=== PATIENT | female | born 1930 | race Caucasian/White ===

== ENCOUNTER 2017-04-17 12:05 | Inpatient (IN) | payer MEDICARE, MEDICAID ==
[~2017-04-17] VITALS: Ht 165.1 cm; Wt 67.0 kg
[2017-04-17] MEDS ORDERED: LISI40TA PO (12:19)
[2017-04-17] MEDS ORDERED: ASPI-496 PO (12:19)
[2017-04-17] MEDS ORDERED: ONDANSETRON 2MG/ML, 2ML ONE (12:56)
[2017-04-17] MEDS ORDERED: MAALOX/HYOSCYAMINE/LIDOCAINE 45 ML BTL ONE (12:56)
[2017-04-17] MEDS ORDERED: MORPHINE SULFATE 4 MG/ML, 1ML ONE (12:56)
[2017-04-17] MEDS ORDERED: SODIUM CHLORIDE FLUSH 10ML SYR IVF ONE (13:00)
[2017-04-17] MEDS ORDERED: MAALOX/HYOSCYAMINE/LIDOCAINE 45 ML BTL PO ONE (13:00)
[2017-04-17] MEDS ORDERED: ONDANSETRON 2MG/ML, 2ML IVPush ONE (13:00)
[2017-04-17] MEDS ORDERED: SODIUM CHLORIDE 0.9% 1,000ML IVBOLUS ONE (13:00)
[2017-04-17] MEDS ORDERED: MORPHINE SULFATE 4 MG/ML, 1ML IVPush PRN (13:00)
[2017-04-17 13:10] LABS: MICROSCOPIC AUTO
[2017-04-17 13:12] LABS: CULTURE INDICATED? YES
[2017-04-17 13:19] LABS: BASOPHILS # (AUTO) 0.03 x10^3/uL (0-0.1); BASOPHILS % (AUTO) 0 % (0-1); EOSINOPHILS # (AUTO) 0.05 x10^3/uL (0-0.4); EOSINOPHILS % (AUTO) 1 % (1-7); LYMPHOCYTES # (AUTO) 1.25 x10^3/uL (1-3.4); LYMPHOCYTES % (AUTO) 12 % (22-44); MD NO; MEAN CORPUSCULAR VOLUME 85.2 fL (80-100); MEAN PLATELET VOLUME 8.1 fL (7.4-10.4); MONOCYTES # (AUTO) 0.64 x10^3/uL (0.2-0.8); MONOCYTES % (AUTO) 6 % (2-9); NEUTROPHILS # (AUTO) 8.92 x10^3/uL (1.8-6.8); NEUTROPHILS % (AUTO) 82 % (42-75); PLATELET COUNT 309 x10^3/uL (130-400); RED BLOOD COUNT 4.34 x10^6/uL (3.82-5.3); RED CELL DISTRIBUTION WIDTH 13.8 % (9.6-15.2)
[2017-04-17 13:31] LABS: ALANINE AMINOTRANSFERASE 15 U/L (12-78); ALBUMIN 3.3 g/dL (3.4-5.0); ANION GAP 10 mmol/L (5-15); CALCIUM 9.1 mg/dL (8.5-10.1); CHLORIDE 104 mmol/L (98-107); CREATININE 1.24 mg/dL (0.55-1.02)
[2017-04-17 13:33] LABS: ALKALINE PHOSPHATASE 75 U/L (45-117); BILIRUBIN,TOTAL 0.4 mg/dL (0.2-1.0)
[2017-04-17] MEDS ORDERED: OMNIPAQUE 350 MG/ML, 100ML BOTTLE ONE (14:34)
[2017-04-17] MEDS ORDERED: HYDROcodone/APAP 5/325 TABLET PO PRN (17:00)
[2017-04-17] MEDS ORDERED: hydrALAzine 20 MG/ML, 1ML IV PRN (17:00)
[2017-04-17] MEDS ORDERED: DOCUSATE 100 MG CAPSULE PO PRN (17:00)
[2017-04-17] MEDS ORDERED: ACETAMINOPHEN 325 MG TABLET PO PRN (17:00)
[2017-04-17] MEDS ORDERED: ONDANSETRON 2MG/ML, 2ML IVPush PRN (17:00)
[2017-04-17] MEDS ORDERED: morphine SULFATE 10 MG/ML, 1ML IVPush PRN (17:00)
[2017-04-17] MEDS ORDERED: CALCIUM CARBONATE 500 MG TAB.CHEW PO PRN (17:00)
[2017-04-17] MEDS ORDERED: MAALOX/HYOSCYAMINE/LIDOCAINE 45 ML BTL PO PRN (17:00)
[2017-04-17] MEDS ORDERED: SODIUM CHLORIDE 0.9% 1,000 ML IV SCH (17:00)
[2017-04-17] MEDS ORDERED: POLYETHYLENE GLYCOL 17 GM PACKET PO PRN (17:00)
[2017-04-17] MEDS ORDERED: LABETALOL 5MG/ML, 20ML IVPush PRN (17:00)
[2017-04-17] MEDS ORDERED: ENALAPRILAT 1.25 MG/ML, 2ML IV PRN (17:00)
[2017-04-17 19:28] VITALS: BP 155/64
[2017-04-17] MEDS: FAMOTIDINE 20 MG TABLET PO SCH (21:04)
[2017-04-17] MEDS: SODIUM CHLORIDE FLUSH 10ML SYR IVF SCH (21:04)
[2017-04-18 01:18] VITALS: BP 149/68
[2017-04-18 07:39] VITALS: BP 115/74
[2017-04-18] MEDS: SENNA/DOCUSATE TABLET PO SCH (09:05)
[2017-04-18] MEDS: FAMOTIDINE 20 MG TABLET PO SCH (09:05)
[2017-04-18] MEDS: LISINOPRIL 20 MG TABLET PO SCH (09:05)
[2017-04-18] MEDS: SODIUM CHLORIDE FLUSH 10ML SYR IVF SCH ×2 (09:05→21:00)
[2017-04-18] MEDS: PANTOPRAZOLE 20MG TABLET PO SCH (12:29)
[2017-04-18] MEDS: SUCRALFATE 1 GM/10 ML UDC PO SCH ×3 (12:29→21:52)
[2017-04-18 13:24] VITALS: BP 94/53
[2017-04-18] MEDS ORDERED: SENNA/DOCUSATE TABLET PO PRN (18:00)
[2017-04-18] MEDS ORDERED: GLYCERIN ADULT SUPP PR PRN (18:00)
[2017-04-18] MEDS ORDERED: MAGNESIUM CITRATE 300ML ORAL SOL PO PRN (18:00)
[2017-04-18 19:10] VITALS: BP 95/58
[2017-04-18] MEDS: HEPARIN 5,000 UNITS/ML, 1ML SQ SCH (21:52)
[2017-04-18] MEDS: ASPIRIN 81 MG TABLET EC PO SCH (21:52)
[2017-04-19 01:06] VITALS: BP 102/64
[2017-04-19 04:43] LABS: BASOPHILS # (AUTO) 0.07 x10^3/uL (0-0.1); BASOPHILS % (AUTO) 1 % (0-1); EOSINOPHILS # (AUTO) 0.24 x10^3/uL (0-0.4); EOSINOPHILS % (AUTO) 4 % (1-7); LYMPHOCYTES # (AUTO) 1.68 x10^3/uL (1-3.4); LYMPHOCYTES % (AUTO) 26 % (22-44); MD NO; MEAN CORPUSCULAR HEMOGLOBIN 28.4 pg (27.0-34.8); MEAN CORPUSCULAR HGB CONC 33.3 g/dL (32.4-35.8); MEAN CORPUSCULAR VOLUME 85.4 fL (80-100); MEAN PLATELET VOLUME 8.1 fL (7.4-10.4); MONOCYTES # (AUTO) 0.68 x10^3/uL (0.2-0.8); MONOCYTES % (AUTO) 11 % (2-9); NEUTROPHILS # (AUTO) 3.84 x10^3/uL (1.8-6.8); NEUTROPHILS % (AUTO) 59 % (42-75); PLATELET COUNT 257 x10^3/uL (130-400); RED CELL DISTRIBUTION WIDTH 13.9 % (9.6-15.2)
[2017-04-19 04:46] LABS: ALBUMIN 2.8 g/dL (3.4-5.0); ANION GAP 8 mmol/L (5-15); CALCIUM 8.7 mg/dL (8.5-10.1); CHLORIDE 109 mmol/L (98-107); CREATININE 1.38 mg/dL (0.55-1.02)
[2017-04-19 07:11] VITALS: BP 176/90
[2017-04-19] MEDS: SODIUM CHLORIDE FLUSH 10ML SYR IVF SCH (07:35)
[2017-04-19] MEDS: SENNA/DOCUSATE TABLET PO SCH (08:07)
[2017-04-19] MEDS: SUCRALFATE 1 GM/10 ML UDC PO SCH (08:07)
[2017-04-19] MEDS: LISINOPRIL 20 MG TABLET PO SCH (08:08)
[2017-04-19] MEDS: ASPIRIN 81 MG TABLET EC PO SCH (08:08)
[2017-04-19] MEDS: PANTOPRAZOLE 20MG TABLET PO SCH (08:08)
[2017-04-19] MEDS: HEPARIN 5,000 UNITS/ML, 1ML SQ SCH (08:08)
[2017-04-19] MEDS ORDERED: SUCRALFATE 1 GM TABLET PO SCH (12:00)
[2017-04-19] MEDS ORDERED: SUCR1TAB33 PO (13:11)
[2017-04-19] MEDS ORDERED: PANT20TA3 PO (13:11)
== END 2017-04-19 13:58 | disposition home or self-care (01) | DRG 394 ==
LOC: ED 13:48 → EDIP 16:04 → 3NE 17:39
PROVIDERS: ADMIT Internal Medicine; ATTEND Family Medicine
DX: K55.1 Chronic vascular disorders of intestine (principal); E44.0 Moderate protein-calorie malnutrition; I73.9 Peripheral vascular disease, unspecified; K57.30 Diverticulosis of large intestine without perforation or abscess without bleeding; K59.00 Constipation, unspecified; Z66 Do not resuscitate; K21.9 Gastro-esophageal reflux disease without esophagitis; K29.70 Gastritis, unspecified, without bleeding; H91.90 Unspecified hearing loss, unspecified ear; I10 Essential (primary) hypertension; I25.10 Atherosclerotic heart disease of native coronary artery without angina pectoris; I25.2 Old myocardial infarction; Z90.49 Acquired absence of other specified parts of digestive tract; Z95.1 Presence of aortocoronary bypass graft; K25.9 Gastric ulcer, unspecified as acute or chronic, without hemorrhage or perforation
CPT/HCPCS: 36415; 71045; 74177; 80048; 80053; 81001; 82040; 83605; 83690; 83735; 85025; 86677; 87040; 87086; 93005; 96361; 96374; 96375; J1644; J2405; Q9967; J7030

== ENCOUNTER 2018-04-10 20:48 | Emergency (ER) | payer MEDICARE, MEDICAID ==
[~2018-04-10] VITALS: Ht 162.6 cm; Wt 70.0 kg
[~2018-04-10 20:48] MED LIST: ASPI-496 PO; LISI40TA PO; PANT20TA2 PO; PANT20TA3 PO; RANI150T23 PO; SUCR1TAB33 PO
[2018-04-10 20:58] VITALS: BP 109/74
[2018-04-10] MEDS ORDERED: ALBUTEROL SULFATE 2.5 MG/3 ML ONE (21:21)
[2018-04-10] MEDS ORDERED: AZITHROMYCIN 500 MG TABLET ONE (21:24)
--- NOTE | 2018-04-10 21:28 | NUR ---
RT AT BEDSIDE FOR BREATHING TREATMENT. PT MEDICATED PER EMAR
[2018-04-10] MEDS ORDERED: AZITHROMYCIN 500 MG TABLET PO ONE (21:30)
[2018-04-10] MEDS ORDERED: ALBUTEROL SULFATE 2.5 MG/3 ML NPPB ONE (21:30)
--- NOTE | 2018-04-10 21:35 | NUR ---
Break RN: patient assisted to use bathroom. ambulatory with steady gait.
[2018-04-10] MEDS ORDERED: MAALOX/HYOSCYAMINE/LIDOCAINE 45 ML BTL ONE (22:12)
[2018-04-10] MEDS ORDERED: MAALOX/HYOSCYAMINE/LIDOCAINE 45 ML BTL PO ONE (22:30)
== END 2018-04-10 22:25 | disposition home or self-care (01) ==
LOC: ED 22:15
DX: J20.9 Acute bronchitis, unspecified (principal); R05 Cough; I25.2 Old myocardial infarction; I25.10 Atherosclerotic heart disease of native coronary artery without angina pectoris; I25.83 Coronary atherosclerosis due to lipid rich plaque; I11.9 Hypertensive heart disease without heart failure; Z95.1 Presence of aortocoronary bypass graft
CPT/HCPCS: 71045; 94640; 99284; J7613

== ENCOUNTER 2018-04-17 13:00 | Inpatient (IN) | payer MEDICARE, MEDICAID ==
[~2018-04-17] VITALS: Ht 157.5 cm; Wt 61.6 kg
[2018-04-17] MEDS ORDERED: PANTOPRAZOLE 80 MG in SODIUM CHLORIDE 0.9% 50 ML IVPB ONE (13:14)
[2018-04-17] MEDS ORDERED: PANTOPRAZOLE 80 MG in SODIUM CHLORIDE 0.9% 100 ML IV SCH (13:14)
--- NOTE | 2018-04-17 13:19 | NUR ---
Pt moved to Tr04 after vomiting gross blood. BIlateral IV in rpogress.
[2018-04-17] MEDS ORDERED: ONDANSETRON 2MG/ML, 2ML ONE (13:26)
[2018-04-17] MEDS ORDERED: FAMOTIDINE 20 MG/2 ML ONE (13:26)
[2018-04-17] MEDS ORDERED: SODIUM CHLORIDE 0.9% 1,000ML IVBOLUS ONE ×2 (13:30)
[2018-04-17] MEDS ORDERED: ONDANSETRON 2MG/ML, 2ML IVPush ONE (13:30)
[2018-04-17] MEDS ORDERED: MAALOX/HYOSCYAMINE/LIDOCAINE 45 ML BTL PO ONE (13:30)
[2018-04-17] MEDS ORDERED: SODIUM CHLORIDE FLUSH 10ML SYR IVF ONE (13:30)
[2018-04-17] MEDS: PLEASE ENTER HEIGHT AND WEIGHT MC SCH ×2 (13:30→21:23)
--- NOTE | 2018-04-17 13:32 | NUR ---
PATIENT MOVED TO T4. PATIENT EKG, MONITOR, BP DONE. MEDS ORDERED FROM PHARM. TWO IV NS BLOUSES GOING WITH PRESSURE BAGS
[2018-04-17 13:41] LABS: MEAN CORPUSCULAR HGB CONC 33.1 g/dL (32.4-35.8); MEAN CORPUSCULAR VOLUME 84.7 fL (80-100); PLATELET COUNT 448 x10^3/uL (130-400); RED BLOOD COUNT 1.97 x10^6/uL (3.82-5.3); RED CELL DISTRIBUTION WIDTH 15.4 % (9.6-15.2)
--- NOTE | 2018-04-17 13:41 | NUR ---
LABS DRAWN AND CXR DONE
[2018-04-17 13:46] LABS: ALANINE AMINOTRANSFERASE 16 U/L (12-78); ALBUMIN 2.4 g/dL (3.4-5.0); ANION GAP 12 mmol/L (5-15); CALCIUM 7.8 mg/dL (8.5-10.1); CHLORIDE 108 mmol/L (98-107)
--- NOTE | 2018-04-17 13:50 | NUR ---
MD GARCIA (GI) AT
[2018-04-17 13:51] LABS: ALKALINE PHOSPHATASE 64 U/L (45-117); BILIRUBIN,TOTAL 0.3 mg/dL (0.2-1.0); TOTAL PROTEIN 5.2 g/dL (6.4-8.2); TROPONIN I 0.031 ng/mL (0.000-0.045)
[2018-04-17 13:52] LABS: INTERNATIONAL NORMALIZED RATIO 1.03 (0.93-1.1); PROTHROMBIN TIME 10.9 Seconds (9.6-11.5)
--- NOTE | 2018-04-17 14:11 | NUR ---
PT TO HAVE EMERGENT BLOOD TRANSFUSION AT THIS TIME. PT TO HAVE A BLOOD TYPE AT THIS TIME. PT HAS BEEN MATCHED TWICE BY ANANDA IN BLOOD BANK AND AWAITING COMPLETE TYPE AND SCREEN. UNIT HUNG ON BLOOD TUBING WITH FILTER VIA GRAVITY. THIS RN SERVED SECOND VERIFICATION AT THIS TIME.
--- NOTE | 2018-04-17 14:14 | NUR ---
INITATED AND VERFIED BLOOD WITH DANAE FOR THIS PATIENT- IMMEDIATE BLOOD TRANSFUSION - TYPE A VERIFIED WITH ANANDA IN BLOOD BLANK
[2018-04-17 14:15] LABS: BASOPHILS # (AUTO) 0.07 x10^3/uL (0-0.1); BASOPHILS % (AUTO) 1 % (0-1); EOSINOPHILS # (AUTO) 0.01 x10^3/uL (0-0.4); EOSINOPHILS % (AUTO) 0 % (1-7); LYMPHOCYTES # (AUTO) 2.13 x10^3/uL (1-3.4); LYMPHOCYTES % (AUTO) 18 % (22-44); MONOCYTES % (AUTO) 6 % (2-9); NEUTROPHILS % (AUTO) 75 % (42-75)
[2018-04-17] MEDS ORDERED: PROPOFOL 10 MG/ML, 20ML ONE ×2 (14:16→14:42)
[2018-04-17 14:17] LABS: MD MORPH REVIEW ONLY
[2018-04-17 14:18] LABS: <PLATELET ESTIMATE> ADEQUATE; <PLT MORPHOLOGY> NORMAL PLT MORPH; ANISOCYTOSIS 1+; POLYCHROMASIA 1+
[2018-04-17] MEDS ORDERED: OMEP-110 PO (14:23)
[2018-04-17] MEDS ORDERED: PROPOFOL 10 MG/ML, 20ML IVPush ONE (14:30)
--- NOTE | 2018-04-17 14:38 | NUR ---
ENDO AT BS WITH MS SORIANO TO MANAGE SEDATION. SEE PAPER CHARTING FOR ENDOSCOPY NOTES. VSS.
[2018-04-17 15:15] VITALS: BP 119/38
[2018-04-17] MEDS ORDERED: EPINEPHRINE SYRINGE 0.1 MG/ML, 10ML ONE (15:24)
--- NOTE | 2018-04-17 15:25 | NUR ---
PATIENT DAUGHTER KIKE AT BS. GI HAS SPOKEN WITH THIS PATIENT ABOUT PLAN OF CARE. PATIENT RESTING WITH EYES CLOSED AFTER BEING CLEANED UP. AFTER PROCEDURE PATIENT VOMITED THREE ORANGE SIZE BLOOD CLOTS.
[2018-04-17 15:30] VITALS: BP 151/52
--- NOTE | 2018-04-17 15:33 | NUR ---
KIKE PHONE NUMBER [phone]. KIKE TOOK ALL BELONINGS HOME WITH HER EXCEPT PATIENT'S PHONE AND PHONE OPERATING SYSTEM PROGRAMMER. ONLY THE BOTTOM PAIR OF DENTURES FOUND HERE IN ER AND SENT HOME ITH DAUGHTER. REQUESTED THAT DAUGHTER BRING TOP DENTURES AND BOTTOM OTGETHER SO PATIENT CAN EAT. PATIENT ASLEEP AT THIS TIME. WHEN AWAKE, PATIENT CONTINUES TO COMPLAIN OF PAIN. MD VERAS AWARE AND HAS CHECKED ON PATIENT.
[2018-04-17] MEDS ORDERED: ONDANSETRON 2MG/ML, 2ML IVPush PRN (16:30)
--- NOTE | 2018-04-17 16:39 | NUR ---
MD IBARRA AT BEDSIDE
--- NOTE | 2018-04-17 17:08 | NUR ---
PATIENT SLEEPING. PLAN TO DETERMINED ICU VERSES FLOOR ADMIT STAUS AFTER MD IBARRA CONSULTS WITH GI MS GARCIA
[2018-04-17 17:46] VITALS: BP 174/58
--- NOTE | 2018-04-17 17:47 | NUR ---
2ND UNIT BLOOD TRANSFUSION FINISHED. LAB AT BS
[2018-04-17] MEDS: SODIUM CHLORIDE 0.9% 1,000 ML IV SCH (20:40)
[2018-04-17] MEDS: hydrALAzine 20 MG/ML, 1ML IV PRN (20:44)
[2018-04-17] MEDS: PANTOPRAZOLE 80 MG in SODIUM CHLORIDE 0.9% 100 ML IV SCH (21:21)
[2018-04-17] MEDS ORDERED: ENALAPRILAT 1.25 MG/ML, 2ML ONE (21:48)
[2018-04-17] MEDS ORDERED: ENALAPRILAT 1.25 MG/ML, 2ML IV PRN (22:00)
[2018-04-18] VITALS (8 sets, daily range): BP systolic 122–165; BP diastolic 45–82
[2018-04-18] MEDS: hydrALAzine 20 MG/ML, 1ML IV PRN (03:06)
[2018-04-18 06:20] LABS: MEAN CORPUSCULAR HEMOGLOBIN 29.3 pg (27.0-34.8); MEAN CORPUSCULAR HGB CONC 34.6 g/dL (32.4-35.8); MEAN CORPUSCULAR VOLUME 84.8 fL (80-100); MEAN PLATELET VOLUME 7.7 fL (7.4-10.4); PLATELET COUNT 245 x10^3/uL (130-400); RED BLOOD COUNT 2.38 x10^6/uL (3.82-5.3); RED CELL DISTRIBUTION WIDTH 14.4 % (9.6-15.2)
[2018-04-18 06:33] LABS: ALBUMIN 2.3 g/dL (3.4-5.0); ANION GAP 8 mmol/L (5-15); CALCIUM 7.8 mg/dL (8.5-10.1); CHLORIDE 113 mmol/L (98-107)
[2018-04-18 06:37] LABS: ALANINE AMINOTRANSFERASE 13 U/L (12-78); ALKALINE PHOSPHATASE 52 U/L (45-117); BILIRUBIN,TOTAL 0.7 mg/dL (0.2-1.0); CREATININE 1.04 mg/dL (0.55-1.02); TOTAL PROTEIN 4.7 g/dL (6.4-8.2)
[2018-04-18 06:40] LABS: BASOPHILS # (AUTO) 0.05 x10^3/uL (0-0.1); BASOPHILS % (AUTO) 1 % (0-1); EOSINOPHILS # (AUTO) 0.11 x10^3/uL (0-0.4); EOSINOPHILS % (AUTO) 1 % (1-7); LYMPHOCYTES % (AUTO) 18 % (22-44); MD SCAN; MONOCYTES # (AUTO) 0.86 x10^3/uL (0.2-0.8); MONOCYTES % (AUTO) 8 % (2-9); NEUTROPHILS # (AUTO) 7.41 x10^3/uL (1.8-6.8); NEUTROPHILS % (AUTO) 73 % (42-75)
[2018-04-18] MEDS: PANTOPRAZOLE 80 MG in SODIUM CHLORIDE 0.9% 100 ML IV SCH ×2 (08:49→16:28)
[2018-04-18] MEDS: SODIUM CHLORIDE 0.9% 1,000 ML IV SCH ×2 (08:50→21:21)
[2018-04-18] MEDS: LISINOPRIL 10 MG TABLET PO SCH (09:57)
[2018-04-18] MEDS: GUAIFENESIN/DM 100-10MG, 5ML UDC PO PRN ×2 (10:14→21:21)
[2018-04-18] MEDS: SUCRALFATE 1 GM/10 ML UDC PO SCH ×3 (10:14→21:21)
[2018-04-19 02:00] VITALS: BP 145/83
[2018-04-19] MEDS: PANTOPRAZOLE 80 MG in SODIUM CHLORIDE 0.9% 100 ML IV SCH ×2 (04:06→13:59)
[2018-04-19 04:53] LABS: MEAN CORPUSCULAR HGB CONC 33.9 g/dL (32.4-35.8); MEAN CORPUSCULAR VOLUME 85.4 fL (80-100); MEAN PLATELET VOLUME 7.6 fL (7.4-10.4); PLATELET COUNT 238 x10^3/uL (130-400); RED BLOOD COUNT 2.47 x10^6/uL (3.82-5.3); RED CELL DISTRIBUTION WIDTH 14.8 % (9.6-15.2)
[2018-04-19 04:56] LABS: ANION GAP 7 mmol/L (5-15); CALCIUM 7.8 mg/dL (8.5-10.1); CHLORIDE 115 mmol/L (98-107)
[2018-04-19 04:58] LABS: CREATININE 0.93 mg/dL (0.55-1.02)
[2018-04-19 05:43] LABS: BASOPHILS % (AUTO) 1 % (0-1); EOSINOPHILS % (AUTO) 5 % (1-7); LYMPHOCYTES % (AUTO) 21 % (22-44); MONOCYTES % (AUTO) 12 % (2-9); NEUTROPHILS # (AUTO) 4.03 x10^3/uL (1.8-6.8); NEUTROPHILS % (AUTO) 61 % (42-75)
[2018-04-19 05:49] LABS: MD SCAN
[2018-04-19] MEDS ORDERED: MAGNESIUM SULFATE PMX 4GM/100M 100 ML IV ONE (06:00)
[2018-04-19 06:39] LABS: BASOPHILS # (AUTO) 0.06 x10^3/uL (0-0.1); EOSINOPHILS # (AUTO) 0.33 x10^3/uL (0-0.4); LYMPHOCYTES # (AUTO) 1.41 x10^3/uL (1-3.4); MONOCYTES # (AUTO) 0.76 x10^3/uL (0.2-0.8)
[2018-04-19] MEDS: SUCRALFATE 1 GM/10 ML UDC PO SCH ×4 (07:47→20:02)
[2018-04-19 08:10] VITALS: BP 157/80
[2018-04-19] MEDS: LISINOPRIL 10 MG TABLET PO SCH (09:39)
[2018-04-19] MEDS ORDERED: GUAIFENESIN/COD200MG-20MG/10ML LIQUID PO PRN (11:00)
[2018-04-19 13:32] VITALS: BP 189/65
[2018-04-19 13:34] VITALS: BP 143/83
[2018-04-19] MEDS: GUAIFENESIN/DM 100-10MG, 5ML UDC PO PRN ×2 (13:53→20:02)
[2018-04-19] MEDS ORDERED: OMNIPAQUE 350 MG/ML, 100ML BOTTLE ONE (17:32)
[2018-04-19 20:00] VITALS: BP 143/62
[2018-04-19] MEDS: OMEPRAZOLE 20 MG CAPSULE.DR PO SCH (20:03)
[2018-04-20] VITALS (11 sets, daily range): BP systolic 119–164; BP diastolic 55–82
[2018-04-20 05:09] LABS: BASOPHILS # (AUTO) 0.04 x10^3/uL (0-0.1); BASOPHILS % (AUTO) 1 % (0-1); EOSINOPHILS # (AUTO) 0.36 x10^3/uL (0-0.4); EOSINOPHILS % (AUTO) 6 % (1-7); LYMPHOCYTES # (AUTO) 1.21 x10^3/uL (1-3.4); LYMPHOCYTES % (AUTO) 19 % (22-44); MD NO; MEAN CORPUSCULAR HGB CONC 33.8 g/dL (32.4-35.8); MEAN CORPUSCULAR VOLUME 85.6 fL (80-100); MEAN PLATELET VOLUME 7.6 fL (7.4-10.4); MONOCYTES # (AUTO) 0.67 x10^3/uL (0.2-0.8); MONOCYTES % (AUTO) 11 % (2-9); NEUTROPHILS % (AUTO) 64 % (42-75); PLATELET COUNT 250 x10^3/uL (130-400); RED BLOOD COUNT 2.47 x10^6/uL (3.82-5.3); RED CELL DISTRIBUTION WIDTH 14.6 % (9.6-15.2)
[2018-04-20 05:15] LABS: ANION GAP 9 mmol/L (5-15); CALCIUM 8.1 mg/dL (8.5-10.1); CHLORIDE 111 mmol/L (98-107)
[2018-04-20 05:17] LABS: CREATININE 1.08 mg/dL (0.55-1.02)
[2018-04-20] MEDS: SUCRALFATE 1 GM/10 ML UDC PO SCH ×4 (07:42→20:10)
[2018-04-20] MEDS: OMEPRAZOLE 20 MG CAPSULE.DR PO SCH ×2 (07:42→20:11)
[2018-04-20] MEDS: LISINOPRIL 10 MG TABLET PO SCH (09:00)
[2018-04-20] MEDS ORDERED: FUROSEMIDE 40 MG/4 ML IV ONE (14:00)
[2018-04-20] MEDS ORDERED: OMNIPAQUE 350 MG/ML, 100ML BOTTLE ONE (17:31)
[2018-04-21 00:03] VITALS: BP 138/76
[2018-04-21 04:52] LABS: ANION GAP 7 mmol/L (5-15); BASOPHILS # (AUTO) 0.04 x10^3/uL (0-0.1); BASOPHILS % (AUTO) 1 % (0-1); CALCIUM 8.6 mg/dL (8.5-10.1); CHLORIDE 108 mmol/L (98-107); CREATININE 1.07 mg/dL (0.55-1.02); EOSINOPHILS # (AUTO) 0.35 x10^3/uL (0-0.4); EOSINOPHILS % (AUTO) 5 % (1-7); LYMPHOCYTES # (AUTO) 1.54 x10^3/uL (1-3.4); LYMPHOCYTES % (AUTO) 23 % (22-44); MD NO; MEAN CORPUSCULAR VOLUME 88.2 fL (80-100); MEAN PLATELET VOLUME 7.5 fL (7.4-10.4); MONOCYTES # (AUTO) 0.78 x10^3/uL (0.2-0.8); MONOCYTES % (AUTO) 12 % (2-9); NEUTROPHILS # (AUTO) 4.11 x10^3/uL (1.8-6.8); NEUTROPHILS % (AUTO) 60 % (42-75); PLATELET COUNT 280 x10^3/uL (130-400); RED BLOOD COUNT 3.46 x10^6/uL (3.82-5.3); RED CELL DISTRIBUTION WIDTH 14.3 % (9.6-15.2)
[2018-04-21] MEDS: OMEPRAZOLE 20 MG CAPSULE.DR PO SCH (05:42)
[2018-04-21 07:00] VITALS: BP 132/73
[2018-04-21] MEDS: LISINOPRIL 10 MG TABLET PO SCH (09:13)
[2018-04-21] MEDS: SUCRALFATE 1 GM/10 ML UDC PO SCH ×2 (09:13→11:26)
[2018-04-21] MEDS ORDERED: OMEP-110 PO (11:47)
[2018-04-21] MEDS ORDERED: GUAI5SYR PO (11:47)
[2018-04-21] MEDS ORDERED: SUCR1ORA5 PO (11:47)
== END 2018-04-21 13:53 | disposition home health service (06) | DRG 377 ==
LOC: ED 13:39 → EDIP 15:48 → CCU 18:54 → ICU 23:28 → 3NW 04-18 17:24
PROVIDERS: ADMIT Hospitalist; ATTEND Hospitalist
PROC: 3E0G8GC Introduction of Other Therapeutic Substance into Upper GI, Via Natural or Artificial Opening Endoscopic (ICD-10-PCS; 2018-04-17)
PROC: 0D568ZZ Destruction of Stomach, Via Natural or Artificial Opening Endoscopic (ICD-10-PCS; 2018-04-17)
PROC: 0DB68ZX Excision of Stomach, Via Natural or Artificial Opening Endoscopic, Diagnostic (ICD-10-PCS; 2018-04-17)
PROC: 30233N1 Transfusion of Nonautologous Red Blood Cells into Peripheral Vein, Percutaneous Approach (ICD-10-PCS; principal; 2018-04-17 14:10)
DX: K25.4 Chronic or unspecified gastric ulcer with hemorrhage (principal); R57.8 Other shock; N17.9 Acute kidney failure, unspecified; D62 Acute posthemorrhagic anemia; R91.8 Other nonspecific abnormal finding of lung field; I70.8 Atherosclerosis of other arteries; I10 Essential (primary) hypertension; I25.10 Atherosclerotic heart disease of native coronary artery without angina pectoris; I73.9 Peripheral vascular disease, unspecified; K21.9 Gastro-esophageal reflux disease without esophagitis; K59.00 Constipation, unspecified; Z77.22 Contact with and (suspected) exposure to environmental tobacco smoke (acute) (chronic); R00.0 Tachycardia, unspecified; I25.2 Old myocardial infarction; Z87.891 Personal history of nicotine dependence; Z95.1 Presence of aortocoronary bypass graft; Z90.49 Acquired absence of other specified parts of digestive tract
CPT/HCPCS: 36415; 36430; 70450; 71045; 71275; 74177; 80048; 80053; 83605; 83690; 83735; 84100; 84484; 85014; 85018; 85025; 85610; 85730; 86850; 86900; 86923; 87081; 88305; 88342; 93005; 96374; 96375; 99291; G0378; J1940; J2405; J2704; Q9967; C9113; J0360; J3475; J7030; P9016

== ENCOUNTER 2019-03-26 12:59 | Inpatient (IN) | payer MEDICARE, MEDICAID ==
[~2019-03-26] VITALS: Ht 167.6 cm; Wt 63.2 kg
[~2019-03-26 12:59] MED LIST changes: +GUAI5SYR PO; +OMEP-110 PO; +RANI-467 PO; -RANI150T23 PO; +SUCR1ORA5 PO
--- NOTE | 2019-03-26 13:03 | NUR ---
PATIENT BROUGHT IN BY [facility] WITH CHIEF COMPLAINT OF ABD/RIB PAIN WITH "DARK" FOR 5 DAYS. THE PATIENT DENIES CP, SOB, N/V, OR RECENT TRAUMA. THE PATIENT IS ALERT, ORIENTED, WARM AND DRY. PER PATIENT- ONE YEAR AGO HAD REPAR OF BLEEDING ULCER BY DR. RANGEL.
--- NOTE | 2019-03-26 13:15 | NUR ---
PATIENT DENIES BLOOD IN STOOL
[2019-03-26] MEDS ORDERED: PANTOPRAZOLE 80 MG in SODIUM CHLORIDE 0.9% 100 ML IV SCH (13:21)
[2019-03-26] MEDS ORDERED: PANTOPRAZOLE 80 MG in SODIUM CHLORIDE 0.9% 50 ML IVPB ONE (13:21)
[2019-03-26] MEDS ORDERED: SODIUM CHLORIDE FLUSH 10ML SYR IVF ONE (13:30)
[2019-03-26 13:53] LABS: BASOPHILS # (AUTO) 0.03 x10^3/uL (0-0.1); BASOPHILS % (AUTO) 0 % (0-1); EOSINOPHILS # (AUTO) 0.01 x10^3/uL (0-0.4); EOSINOPHILS % (AUTO) 0 % (1-7); LYMPHOCYTES # (AUTO) 0.64 x10^3/uL (1-3.4); LYMPHOCYTES % (AUTO) 8 % (22-44); MD NO; MEAN CORPUSCULAR HEMOGLOBIN 28.7 pg (27.0-34.8); MEAN CORPUSCULAR HGB CONC 32.8 g/dL (32.4-35.8); MEAN CORPUSCULAR VOLUME 87.7 fL (80-100); MEAN PLATELET VOLUME 8.5 fL (7.4-10.4); MONOCYTES # (AUTO) 0.43 x10^3/uL (0.2-0.8); MONOCYTES % (AUTO) 5 % (2-9); NEUTROPHILS # (AUTO) 7.38 x10^3/uL (1.8-6.8); NEUTROPHILS % (AUTO) 87 % (42-75); PLATELET COUNT 239 x10^3/uL (130-400); RED BLOOD COUNT 4.09 x10^6/uL (3.82-5.3); RED CELL DISTRIBUTION WIDTH 13.2 % (9.6-15.2)
[2019-03-26 14:01] LABS: INTERNATIONAL NORMALIZED RATIO 0.98 (0.93-1.1); PROTHROMBIN TIME 10.3 Seconds (9.6-11.5)
[2019-03-26 14:02] LABS: ALANINE AMINOTRANSFERASE 23 U/L (12-78); ALBUMIN 3.2 g/dL (3.4-5.0); ANION GAP 8 mmol/L (5-15); CALCIUM 8.8 mg/dL (8.5-10.1); CHLORIDE 103 mmol/L (98-107)
[2019-03-26 14:05] LABS: ALKALINE PHOSPHATASE 79 U/L (45-117); BILIRUBIN,TOTAL 0.4 mg/dL (0.2-1.0); TOTAL PROTEIN 6.8 g/dL (6.4-8.2)
--- NOTE | 2019-03-26 14:30 | NUR ---
ASSISTED PATIENT WITH STEADY AMBULATION TO BATHROOM. BACK RESTING IN BED.
[2019-03-26] MEDS ORDERED: ASPI-496 PO (15:19)
[2019-03-26 19:06] VITALS: BP 116/78
[2019-03-26] MEDS ORDERED: SODIUM CHLORIDE 0.9% 1,000 ML IV SCH (19:17)
[2019-03-26] MEDS ORDERED: TEMAZEPAM 15 MG CAPSULE PO PRN (19:30)
[2019-03-26] MEDS ORDERED: ONDANSETRON 2MG/ML, 2ML IVPush PRN (19:30)
[2019-03-26] MEDS ORDERED: ACETAMINOPHEN 325 MG TABLET PO PRN (19:30)
[2019-03-26] MEDS ORDERED: LIDODERM 5% PATCH TD PRN (19:30)
[2019-03-26] MEDS ORDERED: DOCUSATE 100 MG CAPSULE PO PRN (19:30)
[2019-03-27] MEDS: PANTOPRAZOLE 80 MG in SODIUM CHLORIDE 0.9% 100 ML IV SCH ×3 (00:58→21:50)
[2019-03-27 01:32] VITALS: BP 129/80
[2019-03-27 06:11] LABS: BASOPHILS # (AUTO) 0.04 x10^3/uL (0-0.1); BASOPHILS % (AUTO) 1 % (0-1); EOSINOPHILS # (AUTO) 0.07 x10^3/uL (0-0.4); EOSINOPHILS % (AUTO) 1 % (1-7); LYMPHOCYTES # (AUTO) 1.28 x10^3/uL (1-3.4); LYMPHOCYTES % (AUTO) 25 % (22-44); MD NO; MEAN CORPUSCULAR HGB CONC 33.3 g/dL (32.4-35.8); MEAN CORPUSCULAR VOLUME 87.3 fL (80-100); MEAN PLATELET VOLUME 8.8 fL (7.4-10.4); MONOCYTES # (AUTO) 0.55 x10^3/uL (0.2-0.8); MONOCYTES % (AUTO) 11 % (2-9); NEUTROPHILS # (AUTO) 3.16 x10^3/uL (1.8-6.8); NEUTROPHILS % (AUTO) 62 % (42-75); PLATELET COUNT 203 x10^3/uL (130-400); RED BLOOD COUNT 3.78 x10^6/uL (3.82-5.3); RED CELL DISTRIBUTION WIDTH 13.5 % (9.6-15.2)
[2019-03-27 06:14] LABS: CHLORIDE 110 mmol/L (98-107)
[2019-03-27 06:17] LABS: ANION GAP 9 mmol/L (5-15); CALCIUM 8.9 mg/dL (8.5-10.1); CREATININE 1.18 mg/dL (0.55-1.02)
[2019-03-27 07:19] VITALS: BP 104/64
[2019-03-27] MEDS: LISINOPRIL 10 MG TABLET PO SCH ×2 (09:00→10:19)
[2019-03-27] MEDS ORDERED: FENTANYL PF 100 MCG/2ML ONE (11:39)
[2019-03-27] MEDS ORDERED: MIDAZOLAM 1 MG/ML, 2ML ONE (11:39)
[2019-03-27] MEDS ORDERED: PROPOFOL 10 MG/ML, 20ML ONE (12:12)
[2019-03-27] MEDS ORDERED: HYDROmorphone 2 MG/ML, 1ML IVPush PRN (13:00)
[2019-03-27] MEDS ORDERED: MEPERIDINE/PF 25MG/ML,1ML IVPush PRN (13:00)
[2019-03-27] MEDS ORDERED: OXYcodone 5 MG/5 ML ORAL.SOL UDC PO PRN (13:00)
[2019-03-27] MEDS ORDERED: hydrALAzine 20 MG/ML, 1ML IV PRN (13:00)
[2019-03-27] MEDS ORDERED: METOPROLOL 1 MG/ML, 5ML IV PRN (13:00)
[2019-03-27] MEDS ORDERED: ONDANSETRON 2MG/ML, 2ML IV PRN (13:00)
[2019-03-27] MEDS ORDERED: FENTANYL PF 100 MCG/2ML IV PRN (13:00)
[2019-03-27] MEDS ORDERED: ACETAMINOPHEN 325 MG TABLET PO PRN (13:00)
[2019-03-27] MEDS ORDERED: hydrALAzine 20 MG/ML, 1ML ONE (13:14)
[2019-03-27 14:00] VITALS: BP 165/65
[2019-03-27 19:51] VITALS: BP 177/72
[2019-03-28] VITALS (7 sets, daily range): BP systolic 140–212; BP diastolic 62–78
[2019-03-28] MEDS: hydrALAzine 20 MG/ML, 1ML IVPush PRN (02:17)
[2019-03-28 05:35] LABS: BASOPHILS # (AUTO) 0.04 x10^3/uL (0-0.1); BASOPHILS % (AUTO) 1 % (0-1); EOSINOPHILS # (AUTO) 0.13 x10^3/uL (0-0.4); EOSINOPHILS % (AUTO) 3 % (1-7); LYMPHOCYTES # (AUTO) 1.19 x10^3/uL (1-3.4); LYMPHOCYTES % (AUTO) 26 % (22-44); MD NO; MEAN CORPUSCULAR HEMOGLOBIN 28.5 pg (27.0-34.8); MEAN CORPUSCULAR HGB CONC 32.9 g/dL (32.4-35.8); MEAN CORPUSCULAR VOLUME 86.8 fL (80-100); MONOCYTES # (AUTO) 0.55 x10^3/uL (0.2-0.8); MONOCYTES % (AUTO) 12 % (2-9); NEUTROPHILS # (AUTO) 2.64 x10^3/uL (1.8-6.8); NEUTROPHILS % (AUTO) 58 % (42-75); PLATELET COUNT 207 x10^3/uL (130-400); RED CELL DISTRIBUTION WIDTH 13.4 % (9.6-15.2)
[2019-03-28 05:47] LABS: ANION GAP 6 mmol/L (5-15); CALCIUM 8.9 mg/dL (8.5-10.1); CHLORIDE 112 mmol/L (98-107)
[2019-03-28 05:49] LABS: CREATININE 1.13 mg/dL (0.55-1.02)
[2019-03-28] MEDS: LISINOPRIL 10 MG TABLET PO SCH (09:05)
[2019-03-28] MEDS: PANTOPRAZOLE 80 MG in SODIUM CHLORIDE 0.9% 100 ML IV SCH ×2 (10:33→18:27)
[2019-03-29] MEDS: hydrALAzine 20 MG/ML, 1ML IVPush PRN (00:06)
[2019-03-29 00:56] VITALS: BP 156/66
[2019-03-29] MEDS: PANTOPRAZOLE 80 MG in SODIUM CHLORIDE 0.9% 100 ML IV SCH (05:58)
[2019-03-29 06:15] LABS: ALBUMIN 2.9 g/dL (3.4-5.0); ANION GAP 7 mmol/L (5-15); CHLORIDE 110 mmol/L (98-107)
[2019-03-29 06:17] LABS: BASOPHILS # (AUTO) 0.04 x10^3/uL (0-0.1); BASOPHILS % (AUTO) 1 % (0-1); EOSINOPHILS # (AUTO) 0.04 x10^3/uL (0-0.4); EOSINOPHILS % (AUTO) 1 % (1-7); LYMPHOCYTES % (AUTO) 13 % (22-44); MD NO; MEAN CORPUSCULAR HEMOGLOBIN 28.7 pg (27.0-34.8); MEAN CORPUSCULAR HGB CONC 32.7 g/dL (32.4-35.8); MEAN CORPUSCULAR VOLUME 87.9 fL (80-100); MEAN PLATELET VOLUME 8.7 fL (7.4-10.4); MONOCYTES # (AUTO) 0.92 x10^3/uL (0.2-0.8); MONOCYTES % (AUTO) 12 % (2-9); NEUTROPHILS # (AUTO) 5.82 x10^3/uL (1.8-6.8); NEUTROPHILS % (AUTO) 75 % (42-75); PLATELET COUNT 220 x10^3/uL (130-400); RED BLOOD COUNT 3.76 x10^6/uL (3.82-5.3); RED CELL DISTRIBUTION WIDTH 13.4 % (9.6-15.2)
[2019-03-29 06:19] LABS: ALANINE AMINOTRANSFERASE 17 U/L (12-78); ALKALINE PHOSPHATASE 67 U/L (45-117); BILIRUBIN,TOTAL 0.8 mg/dL (0.2-1.0); CREATININE 1.17 mg/dL (0.55-1.02); TOTAL PROTEIN 6.1 g/dL (6.4-8.2)
[2019-03-29] MEDS: LISINOPRIL 10 MG TABLET PO SCH (09:47)
== END 2019-03-29 10:26 | disposition left against medical advice (07) | DRG 377 ==
LOC: ED 15:18 → EDIP 15:19 → ED 15:40 → 3N 16:18
PROVIDERS: ADMIT Internal Medicine; ATTEND Internal Medicine
PROC: 0DB68ZX Excision of Stomach, Via Natural or Artificial Opening Endoscopic, Diagnostic (ICD-10-PCS; principal; 2019-03-27 12:00)
DX: K27.4 Chronic or unspecified peptic ulcer, site unspecified, with hemorrhage (principal); N17.0 Acute kidney failure with tubular necrosis; E87.1 Hypo-osmolality and hyponatremia; D64.9 Anemia, unspecified; I10 Essential (primary) hypertension; I25.10 Atherosclerotic heart disease of native coronary artery without angina pectoris; I25.2 Old myocardial infarction; I73.9 Peripheral vascular disease, unspecified; Z53.29 Procedure and treatment not carried out because of patient's decision for other reasons; K31.4 Gastric diverticulum; Z87.891 Personal history of nicotine dependence; Z95.1 Presence of aortocoronary bypass graft
CPT/HCPCS: 36415; 80048; 80053; 83690; 85025; 85610; 85730; 86850; 86900; 88104; 88305; 88333; 88334; 93005; 96374; 96375; G0378; J2250; J2704; J3010; C9113; J0360; J7030